=== PATIENT | female | born 1955 | race African-American/Black ===

== ENCOUNTER 2023-03-25 10:22 | Emergency (ER) | payer MEDICARE ==
--- NOTE | 2023-03-25 11:05 | ED ---
Eye Problem HPI - General Chief complaint: Eye Problems Stated complaint: eye pain Time Seen by Provider: 03/25/23 10:49 Source: patient Mode of arrival: ambulatory Limitations: no limitations - History of Present Illness Initial comments: 67-year-old female sent from [facility] for cocaine abuse last use a week ago presents for chief complaint of eye pain. Patient states over the past 2 or 3 days, has noticed pain of her left eye. No swelling. Denies any loss of vision however notes she occasionally has to strain her eyes. Denies any discharge. Additionally, patient notes over the past 2 or 3 days has noted difficulties with ambulation. Patient states especially after waking in the morning that she is more unsteady on her feet. Additionally, patient notes over the past 2-3 days has had pain across her entire chest. States that this is reproduced/relieved by her rubbing on her chest. Denies shortness of breath. Denies abdominal pain. No other complaints. - Related Data Allergies Allergy/AdvReac Type Severity Reaction Status Date / Time No Known Allergies Allergy Verified 03/25/23 10:27 Review of Systems ROS Statement: Those systems with pertinent positive or pertinent negative responses have been documented in the HPI. ROS Other: All systems not noted in ROS Statement are negative. Past Medical History Additional Past Medical History / Comment(s): Bronchitis. History of Any Multi-Drug Resistant Organisms: None Reported Past Surgical History: No Surgical Hx Reported Past Psychological History: No Psychological Hx Reported Smoking Status: Current every day smoker Past Alcohol Use History: Daily, Heavy Past Drug Use History: Cocaine General Exam Limitations: no limitations General appearance: alert, in no apparent distress Eye exam: Present: normal appearance, PERRL, EOMI, other (No active drainage. No warmth, erythema, edema, or tenderness to palpation.) Neck exam: Present: normal inspection Respiratory exam: Present: normal lung sounds bilaterally, other (Reproducible chest wall tenderness to palpation across the upper chest.) Cardiovascular Exam: Present: regular rate, normal rhythm GI/Abdominal exam: Present: soft Neurological exam: Present: alert, oriented X3 Course Vital Signs 03/25/23 10:25 Temperature 98 F Pulse Rate 82 Respiratory 20 Rate Blood Pressure 118/80 O2 Sat by Pulse 99 Oximetry Medical Decision Making - Medical Decision Making Was pt. sent in by a medical professional or institution (, PA, SUBSTITUTE BUS DRIVER, urgent care, hospital, or [facility]...) When possible be specific @ -[facility] Did you speak to anyone other than the patient for history (EMS, parent, family, police, friend...)? What history was obtained from this source @ -No Did you review nursing and triage notes (agree or disagree)? Why? @ -I reviewed and agree with nursing and triage notes Were old charts reviewed (outside hosp., previous admission, EMS record, old EKG, old radiological studies, urgent care reports/EKG's, [facility] records)? Report findings @ -No old charts were reviewed Differential Diagnosis (chest pain, altered mental status, abdominal pain women, abdominal pain men, vaginal bleeding, weakness, fever, dyspnea, syncope, headache, dizziness, GI bleed, back pain, seizure, CVA, palpatations, mental health, musculoskeletal)? @ -Differential Chest Pain: Stable Angina, Unstable Angina, STEMI, NSTEMI Aortic Dissection, Pneumothorax, Musculoskeletal, Esophageal Spasm GERD, Cholecystitis, Pancreatitis, Zoster, this is not meant to be an all-inclusive list. Differential Dizziness: Benign paroxysmal positional Vertigo, Menieres disease, otitis media, acoustic neuroma, vertebrobasilar insufficiency, cerebellar stroke, encephalitis, hypovolemic, arrhythmia, coronary artery syndrome, anemia, this is not meant to be an all-inclusive list EKG interpreted by me (3pts min.). @ -As above X-rays interpreted by me (1pt min.). @ -Chest x-ray shows no acute process. CT interpreted by me (1pt min.). @ -CT brain shows no acute process. U/S interpreted by me (1pt. min.). @ -None done What testing was considered but not performed or refused? (CT, X-rays, U/S, labs)? Why? @ -None What meds were considered but not given or refused? Why? @ -None Did you discuss the management of the patient with other professionals (professionals i.e. , PA, SUBSTITUTE BUS DRIVER, lab, RT, psych nurse, adoption social worker, business lawyer, teacher, labor relations officer, caseworker protective services)? Give summary @ -No Was smoking cessation discussed for >3mins.? @ -No Was critical care preformed (if so, how long)? @ -No Were there social determinants of health that impacted care today? How? (Homelessness, low income, unemployed, alcoholism, drug addiction, transportation, low edu. Level, literacy, decrease access to med. care, usp, rehab)? @ -No Was there de-escalation of care discussed even if they declined (Discuss DNR or withdrawal of care, Hospice)? DNR status @ -No What co-morbidities impacted this encounter? (DM, HTN, Smoking, COPD, CAD, Cancer, CVA, ARF, Chemo, Hep., AIDS, mental health diagnosis, sleep apnea, morbid obesity)? @ -None Was patient admitted / discharged? Hospital course, mention meds given and route, prescriptions, significant lab abnormalities, going to OR and other pertinent info. @ -Discharge. Imaging and laboratory studies showed no acute findings for source of patient's pain. Pain across the chest likely musculoskeletal in nature. Regards to the eye, no evidence of eye infection with no periorbital redness, warmth, swelling, erythema, edema or tenderness to palpation. Additionally no active drainage. Visual acuity 20/25 bilaterally. Intraocular pressures 15 bilaterally. Advised supportive care. Discharged home in stable condition. Discussed return precautions with patient who verbalizes agreement. Undiagnosed new problem with uncertain prognosis? @ -No Drug Therapy requiring intensive monitoring for toxicity (Heparin, Nitro, Insulin, Cardizem)? @ -No Were any procedures done? @ -No Diagnosis/symptom? @ -Eye pain, chest pain Acute, or Chronic, or Acute on Chronic? @ -Acute Uncomplicated (without systemic symptoms) or Complicated (systemic symptoms)? @ -Uncomplicated Side effects of treatment? @ -No Exacerbation, Progression, or Severe Exacerbation? @ -No Poses a threat to life or bodily function? How? (Chest pain, [place], [place], pneumonia, PE, COPD, DKA, ARF, appy, cholecystitis, CVA, Diverticulitis, Homicidal, Suicidal, threat to staff... and all critical care pts) @ -No - Lab Data Result diagrams: 03/25/23 11:21 03/25/23 11:21 Lab Results 03/25/23 03/25/23 03/25/23 Range/Units 11:21 11:21 11:21 WBC 4.6 (3.8-10.6) k/uL RBC 3.42 L (3.80-5.40) m/uL Hgb 8.7 L (11.4-16.0) gm/dL Hct 29.2 L (34.0-46.0) % MCV 85.4 (80.0-100.0) fL MCH 25.3 (25.0-35.0) pg MCHC 29.6 L (31.0-37.0) g/dL RDW 19.2 H (11.5-15.5) % Plt Count 233 (150-450) k/uL MPV 10.3 Neutrophils % 60 % Lymphocytes % 30 % Monocytes % 6 % Eosinophils % 1 % Basophils % 0 % Neutrophils # 2.8 (1.3-7.7) k/uL Lymphocytes # 1.4 (1.0-4.8) k/uL Monocytes # 0.3 (0-1.0) k/uL Eosinophils # 0.1 (0-0.7) k/uL Basophils # 0.0 (0-0.2) k/uL Hypochromasia Marked Anisocytosis Slight Sodium 139 (137-145) mmol/L Potassium 3.9 (3.5-5.1) mmol/L Chloride 106 (98-107) mmol/L Carbon Dioxide 27 (22-30) mmol/L Anion Gap 6 mmol/L BUN 19 H (7-17) mg/dL Creatinine 0.94 (0.52-1.04) mg/dL Est GFR (CKD-EPI)AfAm 73 (>60 ml/min/1.73 sqM) Est GFR (CKD-EPI)NonAf 64 (>60 ml/min/1.73 sqM) Glucose 87 (74-99) mg/dL Calcium 8.5 (8.4-10.2) mg/dL Total Bilirubin 0.7 (0.2-1.3) mg/dL AST 29 (14-36) U/L ALT 23 (4-34) U/L Alkaline Phosphatase 137 H (38-126) U/L Troponin I <0.012 (0.000-0.034) ng/mL Total Protein 6.7 (6.3-8.2) g/dL Albumin 3.6 (3.5-5.0) g/dL - EKG Data EKG Comments: EKG shows A. fib at [address] or T-wave changes. QRS 88, QT/QTc 360/398. Disposition Clinical Impression: Eye pain, Chest pain Disposition: HOME SELF-CARE Condition: Good Instructions (If sedation given, give patient instructions): Eye Pain (ED), Chest Pain (ED) Additional Instructions: Please return to the Emergency Department if symptoms worsen or any other concerns. Is patient prescribed a controlled substance at d/c from ED?: No Referrals: None,Stated [REFERRING] - 1-2 days Time of Disposition: 12:40
[2023-03-25 12:01] LABS: Anisocytosis Slight; Basophils % (A) 0 %; Eosinophils # (A) 0.1 k/uL (0-0.7); Eosinophils % (A) 1 %; HCT 29.2 % (34.0-46.0); HGB 8.7 gm/dL (11.4-16.0); Hypochromasia Marked; Lymphocytes # (A) 1.4 k/uL (1.0-4.8); Lymphocytes % (A) 30 %; MCH 25.3 pg (25.0-35.0); MCHC 29.6 g/dL (31.0-37.0); MCV 85.4 fL (80.0-100.0); Mean Platelet Volume 10.3; Monocytes # (A) 0.3 k/uL (0-1.0); Monocytes % (A) 6 %; Neutrophils # (A) 2.8 k/uL (1.3-7.7); Neutrophils % (A) 60 %; Platelet Count 233 k/uL (150-450); RBC 3.42 m/uL (3.80-5.40); RDW 19.2 % (11.5-15.5); WBC 4.6 k/uL (3.8-10.6)
--- NOTE | 2023-03-25 12:05 | XR ---
EXAMINATION TYPE: XR chest 2V DATE OF EXAM: 03/25/2023 COMPARISON: None HISTORY: Shortness of breath TECHNIQUE: Frontal and lateral views of the chest are obtained. FINDINGS: Scattered senescent parenchymal changes noted. Hyperinflation compatible with COPD. No evidence for infiltrate. No evidence for atelectasis. Heart size is enlarged. No evidence for congestive failure. Mediastinal structures are stable and grossly unremarkable. No evidence for hilar prominence. Degenerative changes dorsal spine. IMPRESSION: 1. No evidence for acute pulmonary disease.
[2023-03-25 12:06] LABS: ALT 23 U/L (4-34); AST 29 U/L (14-36); African American GFR (CKD) 73 (>60 ml/min/1.73 sqM); Albumin 3.6 g/dL (3.5-5.0); Alkaline Phosphatase 137 U/L (38-126); Anion Gap 6 mmol/L; Blood Urea Nitrogen 19 mg/dL (7-17); Calcium 8.5 mg/dL (8.4-10.2); Carbon Dioxide 27 mmol/L (22-30); Chloride 106 mmol/L (98-107); Glucose 87 mg/dL (74-99); Non-African American GFR(CKD) 64 (>60 ml/min/1.73 sqM); Potassium 3.9 mmol/L (3.5-5.1); Sodium 139 mmol/L (137-145); Total Bilirubin 0.7 mg/dL (0.2-1.3); Total Protein 6.7 g/dL (6.3-8.2)
--- NOTE | 2023-03-25 12:16 | CT ---
EXAMINATION TYPE: CT brain wo con CT DLP: 1189.4 mGycm, Automated exposure control for dose reduction was used. DATE OF EXAM: 03/25/2023 12:11 PM COMPARISON: None. CLINICAL INDICATION:Female, 67 years old with history of unsteady gait, Unsteady gait, LT eye pain TECHNIQUE: Brain: Multiple axial CT images of the brain were obtained without IV contrast. Coronal and sagittal reformats reviewed. FINDINGS: Brain: Extra-axial spaces: No abnormal extra-axial fluid collections. Ventricular system: Within normal limits Cerebral parenchyma: No acute intraparenchymal hemorrhage or mass effect. The tirado-white junction is well differentiated. Cerebellum: Unremarkable. Mass effect: No evidence of midline shift. Intracranial vasculature: unremarkable Soft tissues: Normal. Calvarium/osseous structures: No depressed skull fracture. Paranasal sinuses and mastoid air cells: Clear Visualized orbits: Orbital contents are intact. IMPRESSION: No acute intracranial process.
[2023-03-25 13:10] VITALS: BP 112/72; PULSE 76; RESP 18; TEMP 97.9
== END 2023-03-25 12:46 | disposition home or self-care (01) ==
LOC: EC 10:22
DX: H57.12 Ocular pain, left eye (principal); R07.89 Other chest pain; I48.91 Unspecified atrial fibrillation; F17.200 Nicotine dependence, unspecified, uncomplicated; F14.10 Cocaine abuse, uncomplicated
CPT/HCPCS: 36415; 70450; 71046; 80053; 84484; 85025; 99284

== ENCOUNTER 2023-04-05 14:29 | Emergency (ER) | payer MEDICARE ==
--- NOTE | 2023-04-05 16:08 | ED ---
General Adult HPI - General Chief complaint: Shortness of Breath Stated complaint: vaginal bleeding SOB R leg edema Time Seen by Provider: 04/05/23 15:09 Source: patient Mode of arrival: wheelchair Limitations: no limitations - History of Present Illness Initial comments: This is a 67-year-old female with a past medical history including congestive heart failure, hypertension, atrial fibrillation on Eliquis presents emergency department from [facility] for increasing shortness of breath, lower leg swelling and exertional shortness of breath. The patient did state that she is a past medical history of using crack cocaine and alcohol but has not used in over 16 days. The patient is reportedly homeless. The patient stated that she had the symptoms of lower leg swelling and exertional dyspnea over the last 2-3 days. The patient was however resting in bed comfortably and denied any active chest pain, lightheadedness or dizziness. The patient denied any other acute complaints at this time. - Related Data Home Medications Medication Instructions Recorded Confirmed Acetaminophen Tab [Tylenol] 650 mg PO Q4H PRN 04/05/23 04/05/23 Apixaban [Eliquis] 5 mg PO BID 04/05/23 04/05/23 Aspirin EC [Ecotrin Low Dose] 81 mg PO DAILY 04/05/23 04/05/23 Calcium/Magnesium/Zinc/Stormy D 1 tab PO TID PRN 04/05/23 04/05/23 Losartan Potassium [Cozaar] 25 mg PO DAILY 04/05/23 04/05/23 Megestrol Acetate [Megace] 800 mg PO DAILY 04/05/23 04/05/23 Pregabalin [Lyrica] 50 mg PO TID PRN 04/05/23 04/05/23 Torsemide [Demadex] 20 mg PO DAILY 04/05/23 04/05/23 carvediloL [Coreg] 25 mg PO BID 04/05/23 04/05/23 Allergies Allergy/AdvReac Type Severity Reaction Status Date / Time No Known Allergies Allergy Verified 04/05/23 17:37 Review of Systems ROS Statement: Those systems with pertinent positive or pertinent negative responses have been documented in the HPI. ROS Other: All systems not noted in ROS Statement are negative. Past Medical History Past Medical History: Atrial Fibrillation, COPD, Hypertension Additional Past Medical History / Comment(s): Bronchitis. History of Any Multi-Drug Resistant Organisms: None Reported Past Surgical History: Orthopedic Surgery Additional Past Surgical History / Comment(s): shoulder, orbit surgery, breast removal Past Psychological History: No Psychological Hx Reported Smoking Status: Current every day smoker Past Alcohol Use History: Daily, Heavy Past Drug Use History: Cocaine General Exam Limitations: no limitations General appearance: alert, in no apparent distress Head exam: Present: atraumatic, normocephalic, normal inspection Eye exam: Present: normal appearance Pupils: Present: normal accommodation ENT exam: Present: normal exam, normal oropharynx, mucous membranes moist Neck exam: Present: normal inspection, full ROM Respiratory exam: Present: normal lung sounds bilaterally Cardiovascular Exam: Present: regular rate, normal rhythm, normal heart sounds GI/Abdominal exam: Present: soft, normal bowel sounds Extremities exam: Present: normal inspection, full ROM Back exam: Present: normal inspection, full ROM Neurological exam: Present: alert, oriented X3, CN II-XII intact Psychiatric exam: Present: normal affect, normal mood Skin exam: Present: warm, dry Course Vital Signs 04/05/23 04/05/23 04/05/23 14:48 17:30 18:08 Temperature 98.9 F Pulse Rate 90 92 82 Respiratory 24 18 Rate Blood Pressure 97/65 117/85 O2 Sat by Pulse 100 100 Oximetry 04/05/23 04/05/23 04/05/23 18:13 18:15 18:16 Temperature 98.8 F Pulse Rate 75 85 Respiratory 18 Rate Blood Pressure 119/93 O2 Sat by Pulse 97 Oximetry 04/05/23 04/05/23 04/05/23 18:31 18:51 19:14 Temperature 98.8 F 98.8 F Pulse Rate 94 88 96 Respiratory 18 18 18 Rate Blood Pressure 134/74 129/78 131/95 O2 Sat by Pulse 100 95 97 Oximetry 04/05/23 19:53 Temperature 98.7 F Pulse Rate 88 Respiratory 18 Rate Blood Pressure 117/78 O2 Sat by Pulse 100 Oximetry EKG Findings - EKG Comments: EKG Findings:: An EKG was obtained and was interpreted by myself showing a rate of 82, QR presybeterian of 89, QTC of 389. This EKG showed an atrial fibrillation without any ST segment elevation or depression noted. This is consistent with the patient's previous past medical history. Medical Decision Making - Medical Decision Making Was pt. sent in by a medical professional or institution ([facility] Blood, GREEN MATERIAL VALUE ADDED ASSESSOR, urgent care, hospital, or halfway...) When possible be specific @ -No Did you speak to anyone other than the patient for history (EMS, parent, family, police, friend...)? What history was obtained from this source @ -No Did you review nursing and triage notes (agree or disagree)? Why? @ -I reviewed and agree with nursing and triage notes Were old charts reviewed (outside hosp., previous admission, EMS record, old EKG, old radiological studies, urgent care reports/EKG's, halfway records)? Report findings @ -No old charts were reviewed Differential Diagnosis (chest pain, altered mental status, abdominal pain women, abdominal pain men, vaginal bleeding, weakness, fever, dyspnea, syncope, headache, dizziness, GI bleed, back pain, seizure, CVA, palpatations, mental health)? @ -Congestive heart failure exacerbation, electrolyte abnormality, pneumonia EKG interpreted by me (3pts min.). @ -As above X-rays interpreted by me (1pt min.). @ -X-ray was obtained and was interpreted by myself showing no acute process. There were COPD changes. CT interpreted by me (1pt min.). @ -None done U/S interpreted by me (1pt. min.). @ -None done What testing was considered but not performed or refused? (CT, X-rays, U/S, labs)? Why? @ -None What meds were considered but not given or refused? Why? @ -None Did you discuss the management of the patient with other professionals (professionals i.e. [facility]IAN Blood, GREEN MATERIAL VALUE ADDED ASSESSOR, lab, RT, psych nurse, social media intern, shrimper, teacher, licensing officer, case sealer)? Give summary @ -No Was smoking cessation discussed for >3mins.? @ -No Was critical care preformed (if so, how long)? @ -No Were there social determinants of health that impacted care today? How? (Homelessness, low income, unemployed, alcoholism, drug addiction, transportation, low edu. Level, literacy, decrease access to med. care, usp, rehab)? @ -Homelessness and currently in substance abuse rehabilitation Was there de-escalation of care discussed even if they declined (Discuss DNR or withdrawal of care, Hospice)? DNR status @ -No What co-morbidities impacted this encounter? (DM, HTN, Smoking, COPD, CAD, Cancer, CVA, ARF, Chemo, Hep., AIDS, mental health diagnosis, sleep apnea, morbid obesity)? @ -Atrial fibrillation, congestive heart failure, hypertension, polysubstance abuse Was patient admitted / discharged? Hospital course, mention meds given and route, prescriptions, significant lab abnormalities, going to OR and other pertinent info. @ -The patient was seen and evaluated emergency department. On physical exam, the patient was resting in bed without any acute distress. Vital signs admission were stable. Due to the patient's complaints, laboratory workup was obtained and was significant for hemoglobin of 6.4. The patient when asked did state that she has a history of chronic anemia. The patient denied any active bleeding to myself. The remainder laboratory workup was largely within normal limits. ProBNP was elevated at 2880. Due to these findings, the patient did receive 1 unit of packed red blood cells as well as 40 mg of Lasix. The patient is currently on her home dose of torsemide however stated that she did have a poor diet as that is what she is been given at the rehabilitation Center. The patient did receive her 1 unit of packed red blood cells and on reevaluation was resting in bed comfortably. Because the patient had a mild CHF exacerbation and had chronic anemia that was repleted with 1 unit of packed red blood cells, the patient was stable for discharge back to her rehab facility. The patient was advised to follow-up with her primary care physician and to continue take her medications as prescribed. The patient was agreeable to this and all her questions were answered. The patient was discharged in stable condition. Undiagnosed new problem with uncertain prognosis? @ -No Drug Therapy requiring intensive monitoring for toxicity (Heparin, Nitro, Insulin, Cardizem)? @ -No Were any procedures done? @ -No Diagnosis/symptom? @ -Mild CHF exacerbation, chronic anemia Acute, or Chronic, or Acute on Chronic? @ -Acute on chronic Uncomplicated (without systemic symptoms) or Complicated (systemic symptoms)? @ -Uncomplicated Side effects of treatment? @ -No Exacerbation, Progression, or Severe Exacerbation? @ -Mild exacerbation Poses a threat to life or bodily function? How? (Chest pain, [place], [place], pneumonia, PE, COPD, DKA, ARF, appy, cholecystitis, CVA, Diverticulitis, Homicidal, Suicidal, threat to staff... and all critical care pts) @ -No - Lab Data Result diagrams: 04/05/23 16:01 04/05/23 16:01 Lab Results 04/05/23 04/05/23 04/05/23 Range/Units 16:01 16:01 16:01 WBC 7.3 (3.8-10.6) k/uL RBC 2.55 L (3.80-5.40) m/uL Hgb 6.4 L* D (11.4-16.0) gm/dL Hct 21.8 L (34.0-46.0) % MCV 85.6 (80.0-100.0) fL MCH 25.1 (25.0-35.0) pg MCHC 29.4 L (31.0-37.0) g/dL RDW 19.7 H (11.5-15.5) % Plt Count 145 L (150-450) k/uL MPV 13.0 Neutrophils % (Manual) 59 % Lymphocytes % (Manual) 32 % Monocytes % (Manual) 8 % Eosinophils % (Manual) 1 % Neutrophils # (Manual) 4.31 (1.3-7.7) k/uL Lymphocytes # (Manual) 2.34 (1.0-4.8) k/uL Monocytes # (Manual) 0.58 (0-1.0) k/uL Eosinophils # (Manual) 0.07 (0-0.7) k/uL Nucleated RBCs 0 (0-0) /100 WBC Manual Slide Review Performed Polychromasia Present Hypochromasia Marked Poikilocytosis Slight Anisocytosis Slight Target Cells Present PT (9.0-12.0) sec INR (<1.2) APTT (22.0-30.0) sec Sodium 140 (137-145) mmol/L Potassium 4.4 (3.5-5.1) mmol/L Chloride 109 H (98-107) mmol/L Carbon Dioxide 25 (22-30) mmol/L Anion Gap 6 mmol/L BUN 38 H (7-17) mg/dL Creatinine 1.29 H (0.52-1.04) mg/dL Est GFR (CKD-EPI)AfAm 50 (>60 ml/min/1.73 sqM) Est GFR (CKD-EPI)NonAf 43 (>60 ml/min/1.73 sqM) Glucose 96 (74-99) mg/dL Calcium 8.5 (8.4-10.2) mg/dL Magnesium 2.3 (1.6-2.3) mg/dL Total Bilirubin 0.5 (0.2-1.3) mg/dL AST 23 (14-36) U/L ALT 19 (4-34) U/L Alkaline Phosphatase 155 H (38-126) U/L Troponin I <0.012 (0.000-0.034) ng/mL NT-Pro-B Natriuret Pep 2880 pg/mL Total Protein 6.4 (6.3-8.2) g/dL Albumin 3.5 (3.5-5.0) g/dL Lipase 254 (23-300) U/L Blood Type Blood Type Confirm Blood Type Recheck Bld Type Recheck Status Antibody Screen Crossmatch Spec Expiration Date 04/05/23 04/05/23 04/05/23 Range/Units 16:01 16:45 16:47 WBC (3.8-10.6) k/uL RBC (3.80-5.40) m/uL Hgb (11.4-16.0) gm/dL Hct (34.0-46.0) % MCV (80.0-100.0) fL MCH (25.0-35.0) pg MCHC (31.0-37.0) g/dL RDW (11.5-15.5) % Plt Count (150-450) k/uL MPV Neutrophils % (Manual) % Lymphocytes % (Manual) % Monocytes % (Manual) % Eosinophils % (Manual) % Neutrophils # (Manual) (1.3-7.7) k/uL Lymphocytes # (Manual) (1.0-4.8) k/uL Monocytes # (Manual) (0-1.0) k/uL Eosinophils # (Manual) (0-0.7) k/uL Nucleated RBCs (0-0) /100 WBC Manual Slide Review Polychromasia Hypochromasia Poikilocytosis Anisocytosis Target Cells PT 11.3 (9.0-12.0) sec INR 1.1 (<1.2) APTT 22.3 (22.0-30.0) sec Sodium (137-145) mmol/L Potassium (3.5-5.1) mmol/L Chloride (98-107) mmol/L Carbon Dioxide (22-30) mmol/L Anion Gap mmol/L BUN (7-17) mg/dL Creatinine (0.52-1.04) mg/dL Est GFR (CKD-EPI)AfAm (>60 ml/min/1.73 sqM) Est GFR (CKD-EPI)NonAf (>60 ml/min/1.73 sqM) Glucose (74-99) mg/dL Calcium (8.4-10.2) mg/dL Magnesium (1.6-2.3) mg/dL Total Bilirubin (0.2-1.3) mg/dL AST (14-36) U/L ALT (4-34) U/L Alkaline Phosphatase (38-126) U/L Troponin I (0.000-0.034) ng/mL NT-Pro-B Natriuret Pep pg/mL Total Protein (6.3-8.2) g/dL Albumin (3.5-5.0) g/dL Lipase (23-300) U/L Blood Type B Positive Blood Type Confirm B Positive Blood Type Recheck No Previous Record Bld Type Recheck Status CABO Indicated Antibody Screen NEGATIVE Crossmatch See Detail Spec Expiration Date 04/08/20232344 Disposition Clinical Impression: CHF (congestive heart failure), Anemia Disposition: HOME SELF-CARE Condition: Stable Instructions (If sedation given, give patient instructions): Heart Failure (DC), Anemia (ED) Is patient prescribed a controlled substance at d/c from ED?: No Referrals: Christian Garcia MD [Primary Care Provider] - 1-2 days Time of Disposition: 20:00
--- NOTE | 2023-04-05 16:23 | XR ---
EXAMINATION TYPE: XR chest 2V DATE OF EXAM: 04/05/2023 4:19 PM COMPARISON: Chest radiographs from 03/25/2023 TECHNIQUE: XR chest 2V Frontal and lateral views of the chest. CLINICAL INDICATION:Female, 67 years old with history of CP; FINDINGS: Lungs/Pleura: There is no evidence of pleural effusion, focal consolidation, or pneumothorax. Hyperi nflation with chronic interstitial changes. Pulmonary vascularity: Unremarkable. Heart/mediastinum: Cardiomediastinal silhouette is unremarkable. Musculoskeletal: Multiple level degenerative disc disease changes seen throughout the spine. IMPRESSION: 1. No acute cardiopulmonary disease process. 2. COPD changes.
[2023-04-05 16:26] LABS: INR 1.1 (<1.2); Partial Thromboplastin Time 22.3 sec (22.0-30.0); Prothrombin Time 11.3 sec (9.0-12.0)
[2023-04-05 16:29] LABS: ALT 19 U/L (4-34); AST 23 U/L (14-36); African American GFR (CKD) 50 (>60 ml/min/1.73 sqM); Albumin 3.5 g/dL (3.5-5.0); Alkaline Phosphatase 155 U/L (38-126); Anion Gap 6 mmol/L; Anisocytosis Slight; Blood Urea Nitrogen 38 mg/dL (7-17); Calcium 8.5 mg/dL (8.4-10.2); Carbon Dioxide 25 mmol/L (22-30); Chloride 109 mmol/L (98-107); Glucose 96 mg/dL (74-99); HCT 21.8 % (34.0-46.0); Hypochromasia Marked; Lipase 254 U/L (23-300); MCH 25.1 pg (25.0-35.0); MCHC 29.4 g/dL (31.0-37.0); MCV 85.6 fL (80.0-100.0); Magnesium 2.3 mg/dL (1.6-2.3); Non-African American GFR(CKD) 43 (>60 ml/min/1.73 sqM); Platelet Count 145 k/uL (150-450); Poikilocytosis Slight; Potassium 4.4 mmol/L (3.5-5.1); RBC 2.55 m/uL (3.80-5.40); RDW 19.7 % (11.5-15.5); Sodium 140 mmol/L (137-145); Total Bilirubin 0.5 mg/dL (0.2-1.3); Total Protein 6.4 g/dL (6.3-8.2); WBC 7.3 k/uL (3.8-10.6)
[2023-04-05 16:32] LABS: HGB 6.4 gm/dL (11.4-16.0)
[2023-04-05 16:37] LABS: NT-Pro-B-Type Natriuretic Pept 2880 pg/mL
[2023-04-05 17:10] LABS: Eosinophils # (M) 0.07 k/uL (0-0.7); Lymphocytes # (M) 2.34 k/uL (1.0-4.8); Monocytes # (M) 0.58 k/uL (0-1.0); Neutrophils # (M) 4.31 k/uL (1.3-7.7); Neutrophils % (M) 59 %; Nucleated Red Blood Cells 0 /100 WBC (0-0); Total Cells Counted 100
[2023-04-05 17:12] LABS: Polychromasia Present; Target Cells Present
[2023-04-05] MEDS ORDERED: IPRATROPIUM-ALBUTEROL 3 ML NEB INHALATION STA (17:32)
[2023-04-05] MEDS ORDERED: FUROSEMIDE 10 MG/ML 4 ML VIAL IV STA (17:32)
[2023-04-05 17:57] VITALS: RESP 18
[2023-04-05 19:56] VITALS: BP 117/78; PULSE 88; TEMP 98.7
== END 2023-04-05 20:56 | disposition home or self-care (01) ==
LOC: EC 14:29
DX: D64.9 Anemia, unspecified (principal); I11.0 Hypertensive heart disease with heart failure; I50.9 Heart failure, unspecified; I48.91 Unspecified atrial fibrillation; J44.9 Chronic obstructive pulmonary disease, unspecified; F17.200 Nicotine dependence, unspecified, uncomplicated; Z79.01 Long term (current) use of anticoagulants; Z79.82 Long term (current) use of aspirin; Z79.899 Other long term (current) drug therapy
CPT/HCPCS: 99285; 96374; 36430; 36415; 94640; 93005; 86900; 86901; 83880; 80053; 83690; 83735; 84484; 85025; 85610; 85730; 86850; 86920; 71046; P9016; J1940